=== PATIENT | male | born 1955 | race African-American/Black ===

== ENCOUNTER 2017-11-07 17:57 | Inpatient (IN) | payer BC, OTHER ==
[~2017-11-07] VITALS: Ht 185.4 cm; Wt 91.3 kg
[2017-11-07] MEDS ORDERED: AMLO10TA80 PO (18:47)
[2017-11-07] MEDS ORDERED: BENZ100C86 PO (18:47)
[2017-11-07] MEDS ORDERED: FLUT1DIS3 IH (18:47)
[2017-11-07] MEDS ORDERED: METH4TAB17 PO (18:47)
[2017-11-07] MEDS ORDERED: AZIT250T12 PO (18:47)
[2017-11-07] MEDS ORDERED: PROM6.25 PO (18:47)
[2017-11-07] MEDS ORDERED: LISI10TA5 PO (18:47)
[2017-11-07] MEDS ORDERED: LABETALOL HCL 20MG/4ML CARPUJECT IV ONE (21:30)
[2017-11-07] MEDS ORDERED: ASPIRIN 81MG TABLET PO ONE (21:30)
[2017-11-07] MEDS ORDERED: AZITHROMYCIN 500 MG in DEXT 5% WATER 250 ML IV ONE (21:30)
[2017-11-07] MEDS ORDERED: CEFTRIAXONE 1 G PREMIX 50 ML IV ONE (21:30)
[2017-11-07] MEDS ORDERED: NITROGLYCERIN OINT 1GM/INCH UDPKT TD ONE (21:30)
[2017-11-07] MEDS ORDERED: METHYLPREDNISOLONE SOD SUCC 125 MG/2 ML VIAL IV STA (21:44)
[2017-11-07] MEDS ORDERED: IPRATROPIUM BROMIDE (0.02%) 0.5MG/2.5ML NEB HHN STA (21:44)
[2017-11-07] MEDS ORDERED: ALBUTEROL (0.083%) 2.5MG/3ML NEB HHN STA (21:44)
[2017-11-07] MEDS ORDERED: MAGNESIUM 2 G PREMIX 50 ML IV ONE (21:45)
[2017-11-07 22:05] LABS: HEMATOCRIT. 46.2 % (42.0-52.0); HEMOGLOBIN. 14.8 g/dL (14.0-18.0); MEAN CORPUSCULAR HEMOGLOBIN 26.8 pg (28.0-32.0); MEAN CORPUSCULAR VOLUME 83.5 fL (80.0-94.0); MEAN PLATELET VOLUME 8.2 fl (7.4-10.4); PLATELET 308 x1000/uL (130-400); RED BLOOD CELL COUNT 5.53 mill/uL (4.7-6.1)
[2017-11-07 22:07] LABS: BG BASE EXCESS 5.2 mmol/L (-2.0-2.0); BG CARBOXYHEMOGLOBIN 1.5 % (0.5-1.5); BG DEOXYHEMOGLOBIN 3.4 % (0.0-5.0); BG FRACTION INSPIRED OXYGEN 32; BG HCO3 ACT 31.5 mmol/L (22.0-26.0); BG METHEMOGLOBIN 0.3 % (0.0-1.5); BG OXYGEN SATURATION 96.5 % (92.0-98.5); BG OXYHEMOGLOBIN 94.8 % (94.0-97.0); BG PCO2 51.7 mmHg (35.0-45.0); BG PH 7.402 (7.350-7.450); BG PO2 90.1 mmHg (75.0-100.0); BG SAMPLE SITE RIGHT RADIAL; BG TOTAL HEMOGLOBIN 15.7 g/dL (12.0-18.0); BG VENT MODE NASAL CANNULA
[2017-11-07 22:12] LABS: INR 1.4; PROTHROMBIN TIME 14.6 sec (9.4-11.6)
[2017-11-07 22:15] LABS: CHLORIDE 98 mEq/L (98-107)
[2017-11-07] MEDS ORDERED: LABETALOL 5MG/ML SYR 20 MG/4 ML SYRINGE IV SCH ×2 (22:20→23:00)
[2017-11-07 22:21] LABS: PLATELET ESTIMATE NORMAL
[2017-11-07 22:22] LABS: ETHANOL BLOOD < 10 mg/dL; TROPONIN I 0.27 ng/mL (0.00-0.04)
[2017-11-07] MEDS ORDERED: AZITHROMYCIN 500 MG in SODIUM CHLORIDE 0.45% 250 ML IV SCH (22:30)
[2017-11-08] VITALS (7 sets, daily range): BP systolic 112–157; BP diastolic 80–118
[2017-11-08] MEDS ORDERED: CLONIDINE 0.1MG TABLET PO PRN (02:00)
[2017-11-08] MEDS: METHYLPREDNISOLONE SOD SUCC 40 MG/ML VIAL IV SCH ×4 (02:12→21:21)
[2017-11-08] MEDS: IPRATROPIUM/ALBUTEROL 0.5-3(2.5)MG/3ML NEB HHN SCH ×5 (05:10→21:19)
[2017-11-08] MEDS: ENOXAPARIN 40MG/0.4ML SYR SUBCUT SCH (08:59)
[2017-11-08 09:27] LABS: CHLORIDE 94 mEq/L (98-107)
[2017-11-08 09:30] LABS: HEMATOCRIT. 43.5 % (42.0-52.0); HEMOGLOBIN. 13.9 g/dL (14.0-18.0); MEAN CORPUSCULAR HEMOGLOBIN 27.2 pg (28.0-32.0); MEAN PLATELET VOLUME 8.7 fl (7.4-10.4); PLATELET 324 x1000/uL (130-400); RED BLOOD CELL COUNT 5.12 mill/uL (4.7-6.1); RED CELL DISTRIBUTION WIDTH 14.8 % (11.6-14.6)
[2017-11-08] MEDS: AMLODIPINE 5MG TABLET PO SCH ×2 (10:12→20:41)
[2017-11-08] MEDS: LISINOPRIL 10MG TABLET PO SCH ×2 (10:12→20:41)
[2017-11-08] MEDS: FUROSEMIDE 20MG TABLET PO SCH ×2 (10:13→20:41)
[2017-11-08] MEDS ORDERED: INFLUENZA VIRUS VACCINE 0.5ML SYR IM ONE (12:00)
[2017-11-08] MEDS ORDERED: PNEUMOCOCCAL 23-VAL P-SAC VAC 0.5 ML IM ONE (12:00)
[2017-11-08 14:14] LABS: PLATELET ESTIMATE NORMAL
[2017-11-08] MEDS ORDERED: FUROSEMIDE 40MG/4ML VIAL IVP NR (18:45)
[2017-11-08 20:03] LABS: CLARITY URINE CLEAR (CLEAR); COLOR URINE YELLOW (YELLOW); KETONES URINE NEGATIVE (NEGATIVE); LEUKOCYTE ESTERASE URINE NEGATIVE (NEGATIVE); NITRITE URINE NEGATIVE (NEGATIVE); OCCULT BLOOD URINE NEGATIVE (NEGATIVE); PROTEIN URINE NEGATIVE (NEGATIVE); SPECIFIC GRAVITY URINE 1.019 (1.005-1.030); UROBILINOGEN URINE 0.2 E.U./dL (0.2-1.0)
[2017-11-08 20:16] LABS: *AMPHETAMINES SCREEN URINE NEGATIVE (NEGATIVE); *BARBITURATES SCREEN URINE NEGATIVE (NEGATIVE); *BENZODIAZEPINES SCREEN URINE NEGATIVE (NEGATIVE); *COCAINE SCREEN URINE NEGATIVE (NEGATIVE); CANNABINOID URINE SCREEN NEGATIVE (NEGATIVE); METHADONE URINE SCREEN NEGATIVE (NEGATIVE); OPIATES URINE SCREEN NEGATIVE (NEGATIVE); PHENCYCLIDINE URINE SCREEN NEGATIVE (NEGATIVE)
[2017-11-09] VITALS: BP 154/97
[2017-11-09] MEDS: IPRATROPIUM/ALBUTEROL 0.5-3(2.5)MG/3ML NEB HHN SCH ×5 (00:35→16:34)
[2017-11-09 04:00] VITALS: BP 144/97
[2017-11-09] MEDS: METHYLPREDNISOLONE SOD SUCC 40 MG/ML VIAL IV SCH ×3 (05:21→21:15)
[2017-11-09 06:47] LABS: HEMATOCRIT. 43.8 % (42.0-52.0); MEAN CORPUSCULAR VOLUME 84.5 fL (80.0-94.0); MEAN PLATELET VOLUME 8.7 fl (7.4-10.4); PLATELET 303 x1000/uL (130-400); RED BLOOD CELL COUNT 5.19 mill/uL (4.7-6.1); RED CELL DISTRIBUTION WIDTH 14.4 % (11.6-14.6)
[2017-11-09 07:49] LABS: CHLORIDE 96 mEq/L (98-107)
[2017-11-09 07:58] LABS: HDL CHOLESTEROL 31 mg/dL (40-59); LDL CHOLESTEROL 150 mg/dL (5-100)
[2017-11-09 08:00] VITALS: BP 150/97
[2017-11-09] MEDS: LISINOPRIL 10MG TABLET PO SCH ×2 (09:10→21:07)
[2017-11-09] MEDS: AMLODIPINE 5MG TABLET PO SCH ×2 (09:11→21:09)
[2017-11-09] MEDS: FUROSEMIDE 20MG TABLET PO SCH (09:11)
[2017-11-09] MEDS: ENOXAPARIN 40MG/0.4ML SYR SUBCUT SCH (09:11)
[2017-11-09 09:44] LABS: PLATELET ESTIMATE NORMAL
[2017-11-09 12:00] VITALS: BP 136/94
[2017-11-09] MEDS: FUROSEMIDE 40MG/4ML VIAL IVP SCH (12:24)
[2017-11-09] MEDS: ISOSORB DINIT/HYDRALAZINE HCL 20/37.5MG TABLET PO SCH ×2 (14:24→22:56)
[2017-11-09 16:00] VITALS: BP 127/79
[2017-11-09 20:00] VITALS: BP 140/88
[2017-11-09] MEDS: ATORVASTATIN CALCIUM 20MG TABLET PO SCH (21:07)
[2017-11-10] VITALS: BP 128/82
[2017-11-10] MEDS: IPRATROPIUM/ALBUTEROL 0.5-3(2.5)MG/3ML NEB HHN SCH ×6 (00:41→20:34)
[2017-11-10 04:00] VITALS: BP 148/95
[2017-11-10] MEDS: METHYLPREDNISOLONE SOD SUCC 40 MG/ML VIAL IV SCH ×3 (05:33→22:37)
[2017-11-10] MEDS: ISOSORB DINIT/HYDRALAZINE HCL 20/37.5MG TABLET PO SCH ×3 (05:40→22:40)
[2017-11-10 05:56] LABS: HEMATOCRIT. 40.7 % (42.0-52.0); HEMOGLOBIN. 13.4 g/dL (14.0-18.0); MEAN CORPUSCULAR HEMOGLOBIN 27.2 pg (28.0-32.0); MEAN CORPUSCULAR VOLUME 82.9 fL (80.0-94.0); MEAN PLATELET VOLUME 8.5 fl (7.4-10.4); PLATELET 321 x1000/uL (130-400); RED BLOOD CELL COUNT 4.91 mill/uL (4.7-6.1); RED CELL DISTRIBUTION WIDTH 14.6 % (11.6-14.6)
[2017-11-10 06:55] LABS: CHLORIDE 93 mEq/L (98-107)
[2017-11-10 08:00] VITALS: BP 143/103
[2017-11-10] MEDS: FUROSEMIDE 40MG/4ML VIAL IVP SCH (08:38)
[2017-11-10] MEDS: AMLODIPINE 5MG TABLET PO SCH ×2 (08:38→22:37)
[2017-11-10] MEDS: LISINOPRIL 10MG TABLET PO SCH ×2 (08:38→22:37)
[2017-11-10] MEDS: ENOXAPARIN 40MG/0.4ML SYR SUBCUT SCH (08:39)
[2017-11-10 10:09] LABS: PLATELET ESTIMATE NORMAL
[2017-11-10 12:00] VITALS: BP 138/92
[2017-11-10 16:00] VITALS: BP 142/95
[2017-11-10 20:00] VITALS: BP 135/85
[2017-11-10] MEDS: ATORVASTATIN CALCIUM 20MG TABLET PO SCH (22:37)
[2017-11-11] VITALS: BP 138/92
[2017-11-11] MEDS: IPRATROPIUM/ALBUTEROL 0.5-3(2.5)MG/3ML NEB HHN SCH ×6 (00:32→20:22)
[2017-11-11 04:00] VITALS: BP 138/84
[2017-11-11] MEDS: METHYLPREDNISOLONE SOD SUCC 40 MG/ML VIAL IV SCH ×3 (05:01→21:32)
[2017-11-11] MEDS: ISOSORB DINIT/HYDRALAZINE HCL 20/37.5MG TABLET PO SCH ×3 (05:01→21:31)
[2017-11-11 08:00] VITALS: BP 141/91
[2017-11-11] MEDS: FUROSEMIDE 40MG/4ML VIAL IVP SCH (08:57)
[2017-11-11] MEDS: LISINOPRIL 10MG TABLET PO SCH (08:57)
[2017-11-11] MEDS: AMLODIPINE 5MG TABLET PO SCH ×2 (08:58→21:32)
[2017-11-11] MEDS: ENOXAPARIN 40MG/0.4ML SYR SUBCUT SCH (08:58)
[2017-11-11 12:00] VITALS: BP 138/91
[2017-11-11] MEDS: SPIRONOLACTONE 25MG TABLET PO SCH (13:47)
[2017-11-11] MEDS: LOSARTAN POTASSIUM 25 MG TABLET PO SCH ×2 (13:47→21:32)
[2017-11-11 16:00] VITALS: BP 125/82
[2017-11-11 20:00] VITALS: BP 128/73
[2017-11-11] MEDS: ATORVASTATIN CALCIUM 20MG TABLET PO SCH (21:31)
[2017-11-12] VITALS: BP 147/94
[2017-11-12] MEDS: IPRATROPIUM/ALBUTEROL 0.5-3(2.5)MG/3ML NEB HHN SCH ×4 (00:37→13:23)
[2017-11-12 04:00] VITALS: BP 126/85
[2017-11-12] MEDS: ISOSORB DINIT/HYDRALAZINE HCL 20/37.5MG TABLET PO SCH ×2 (05:41→13:30)
[2017-11-12] MEDS: METHYLPREDNISOLONE SOD SUCC 40 MG/ML VIAL IV SCH ×2 (05:41→13:30)
[2017-11-12 08:00] VITALS: BP_SYST 136; BP_DIAS 78; BP_DIAS 95
[2017-11-12] MEDS: LOSARTAN POTASSIUM 25 MG TABLET PO SCH (09:00)
[2017-11-12] MEDS: FUROSEMIDE 40MG/4ML VIAL IVP SCH (09:00)
[2017-11-12] MEDS: AMLODIPINE 5MG TABLET PO SCH (09:01)
[2017-11-12] MEDS: ENOXAPARIN 40MG/0.4ML SYR SUBCUT SCH (09:01)
[2017-11-12] MEDS: SPIRONOLACTONE 25MG TABLET PO SCH (09:55)
[2017-11-12 12:00] VITALS: BP 124/85
[2017-11-12 16:00] VITALS: BP 102/70
[2017-11-12 16:49] VITALS: BP 102/70
[2017-11-12] MEDS ORDERED: LOSARTAN POTASSIUM 50 MG TABLET PO SCH (21:00)
== END 2017-11-12 18:00 | disposition home or self-care (01) | DRG 291 ==
LOC: ER 19:31 → 5WST 21:30 → EDBEDREQ 22:28 → ENRESERVTM 22:31 → ENRESERVDT 22:31
PROVIDERS: ADMIT Internal Medicine; ATTEND Internal Medicine
DX: I11.0 Hypertensive heart disease with heart failure (principal); J96.01 Acute respiratory failure with hypoxia; J44.1 Chronic obstructive pulmonary disease with (acute) exacerbation; D68.9 Coagulation defect, unspecified; J45.901 Unspecified asthma with (acute) exacerbation; I50.23 Acute on chronic systolic (congestive) heart failure; I42.9 Cardiomyopathy, unspecified; D72.829 Elevated white blood cell count, unspecified; E78.5 Hyperlipidemia, unspecified; E87.6 Hypokalemia; R74.0 Nonspecific elevation of levels of transaminase and lactic acid dehydrogenase [LDH]; R94.31 Abnormal electrocardiogram [ECG] [EKG]; Z79.899 Other long term (current) drug therapy
CPT/HCPCS: 36415; 36600; 71045; 80048; 80053; 80061; 80076; 80305; 81003; 82375; 82805; 83036; 83605; 83690; 83735; 83880; 84484; 85025; 85610; 87040; 90686; 90732; 93005; 93306; 94640; 94664; 96365; 96367; 96375; 97162; 99291; G0482; J0456; J0696; J1650; J1940; J2920; J2930; J3475; J3490; J7060; J7611; J7620

== ENCOUNTER 2018-12-22 09:40 | Emergency (ER) | payer OTHER ==
[~2018-12-22] VITALS: Ht 165.1 cm; Wt 87.0 kg
[~2018-12-22 09:40] MED LIST: AMLO10TA80 PO; AZIT250T12 PO; BENZ100C86 PO; FLUT1DIS3 IH; LISI10TA5 PO; METH4TAB17 PO; PROM6.254 PO
[2018-12-22 15:24] VITALS: BP 166/97
== END 2018-12-22 15:26 | disposition home or self-care (01) ==
LOC: ER 09:40
DX: M79.672 Pain in left foot (principal); R22.42 Localized swelling, mass and lump, left lower limb; I10 Essential (primary) hypertension; J45.909 Unspecified asthma, uncomplicated; Z98.890 Other specified postprocedural states
CPT/HCPCS: 73630; 99283

== ENCOUNTER 2020-09-01 15:12 | Emergency (ER) | payer BC, OTHER ==
[~2020-09-01] VITALS: Ht 170.2 cm; Wt 91.0 kg
[2020-09-01 15:23] VITALS: BP 114/64
[2020-09-01] MEDS ORDERED: IPRATROPIUM BROMIDE (0.02%) 0.5MG/2.5ML NEB HHN STA (15:30)
[2020-09-01] MEDS ORDERED: ALBUTEROL (0.083%) 2.5MG/3ML NEB HHN STA (15:30)
[2020-09-01] MEDS ORDERED: PREDNISONE 20MG TABLET PO ONE (15:45)
== END 2020-09-01 16:39 | disposition home or self-care (01) ==
LOC: ER 15:12
DX: I11.0 Hypertensive heart disease with heart failure (principal); I50.9 Heart failure, unspecified; J45.909 Unspecified asthma, uncomplicated; Z79.899 Other long term (current) drug therapy; F17.200 Nicotine dependence, unspecified, uncomplicated; Z98.890 Other specified postprocedural states
CPT/HCPCS: 71045; 94640; 99283; J7512; Z7610